=== PATIENT | male | born 1985 | race Native Hawaiian/Other Pacific Islander ===

== ENCOUNTER 2016-08-23 05:02 | Emergency (ER) | payer SELFPAY ==
[~2016-08-23] VITALS: Ht 170.2 cm; Wt 77.0 kg
[2016-08-23 05:17] VITALS: BP 123/65; PULSE 95; RESP 18; TEMP 98.4; O2SAT 97
[2016-08-23] MEDS ORDERED: BUPR4MIS SL (05:55)
[2016-08-23 05:59] VITALS: BP 130/68; PULSE 72; RESP 20; O2SAT 99
[2016-08-23] MEDS ORDERED: SODIUM CHLOR 0.9% 1000 ML INJ 1,000 ML IV SCH (06:17)
--- NOTE | 2016-08-23 06:23 | PD ---
HPI Chief Complaint: Abdominal Pain Time Seen by Provider: 06:07 Travel History International Travel<30 days: No Contact w/Intl Traveler<30days: No Traveled to known affect area: No History of Present Illness HPI The patient is a 30-year-old male that complains of midline epigastric pain along with vomiting for several days. 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 He has been getting nauseated. The patient states he has not been able to sleep. He does not have a history of ulcer. He did vomit some blood/coffee-ground appearing material tonight. He denies any fever. He does feel dehydrated. He does take as much as 400 mg of ibuprofen every 6 hours but denies drinking any alcohol and denies taking any aspirin. PFS Past Medical History Medical other: Yes (hx mrsa, iv drug use ) Tetanus Vaccination: Unknown Influenza Vaccination: No Past Surgical History Neurologic Surgery: Yes (laminectomy ) Social History Alcohol Use: No Tobacco Use: Yes (pack a day ) Substance Use: Yes (heroin, coccaine) Allergies-Medications (Allergen,Severity, Reaction): Coded Allergies: No Known Allergies (Unverified , 08/23/16) Reported Meds & Prescriptions Reported Meds & Active Scripts Active Reported Suboxone Sublingual Film (Buprenorphine-Naloxone Sublingual Film) 4-1 Mg Film 1 Film SL BID Unique ID number required: Review of Systems Except as stated in HPI: all other systems reviewed are Neg Physical Exam Narrative GENERAL: The patient appears moderately dehydrated, alert, oriented 3 in moderate apparent distress with his epigastric discomfort. His vital signs are normal. SKIN: Focused skin assessment warm/dry. HEAD: Atraumatic. Normocephalic. EYES: Pupils equal and round. No scleral icterus. No injection or drainage. ENT: No nasal bleeding or discharge. Mucous membranes pink and moist. NECK: Trachea midline. No JVD. CARDIOVASCULAR: Regular rate and rhythm. No murmur appreciated. RESPIRATORY: No accessory muscle use. Clear to auscultation. Breath sounds equal bilaterally. GASTROINTESTINAL: Abdomen soft, with tenderness to direct palpation in the midline epigastrium, nondistended. Hepatic and splenic margins not palpable. No guarding or rebound is present. MUSCULOSKELETAL: No obvious deformities. No clubbing. No cyanosis. No edema. NEUROLOGICAL: Awake and alert. No obvious cranial nerve deficits. Motor grossly within normal limits. Normal speech. PSYCHIATRIC: Appropriate mood and affect; insight and judgment normal. Data Data Last Documented VS Vital Signs Date Time Temp Pulse Resp B/P Pulse Ox O2 Delivery O2 Flow Rate FiO2 08/23/16 05:59 72 20 130/68 99 Room Air 08/23/16 05:17 98.4 Orders Complete Blood Count With Diff (08/23/16 06:17) Comprehensive Metabolic Panel (08/23/16 06:17) Lipase (08/23/16 06:17) Urinalysis - C+S If Indicated (08/23/16 06:17) Iv Access Insert/Monitor (08/23/16 06:17) Ecg Monitoring (08/23/16 06:17) Oximetry (08/23/16 06:17) Ondansetron Inj (Zofran Inj) (08/23/16 06:30) Pantoprazole Inj (Protonix Inj) (08/23/16 06:30) Sodium Chlor 0.9% 1000 Ml Inj (Ns 1000 M (08/23/16 06:17) Sodium Chloride 0.9% Flush (Ns Flush) (08/23/16 06:30) Famotidine Inj (Pepcid Inj) (08/23/16 06:30) Al-Mag Hy-Si 40-40-4 Mg/Ml Liq (Mag-Al P (08/23/16 06:30) Lidocaine 2% Viscous (Xylocaine 2% Visco (08/23/16 06:30) Labs Laboratory Tests Test 08/23/16 06:25 White Blood Count 16.0 TH/MM3 Red Blood Count 5.92 MIL/MM3 Hemoglobin 15.9 GM/DL Hematocrit 48.8 % Mean Corpuscular Volume 82.5 FL Mean Corpuscular Hemoglobin 26.9 PG Mean Corpuscular Hemoglobin 32.6 % Concent Red Cell Distribution Width 13.4 % Platelet Count 315 TH/MM3 Mean Platelet Volume 8.7 FL Neutrophils (%) (Auto) 76.5 % Lymphocytes (%) (Auto) 15.0 % Monocytes (%) (Auto) 7.8 % Eosinophils (%) (Auto) 0.3 % Basophils (%) (Auto) 0.4 % Neutrophils # (Auto) 12.3 TH/MM3 Lymphocytes # (Auto) 2.4 TH/MM3 Monocytes # (Auto) 1.2 TH/MM3 Eosinophils # (Auto) 0.0 TH/MM3 Basophils # (Auto) 0.1 TH/MM3 CBC Comment DIFF FINAL Differential Comment Sodium Level 140 MEQ/L Potassium Level 3.4 MEQ/L Chloride Level 98 MEQ/L Carbon Dioxide Level 31.3 MEQ/L Anion Gap 11 MEQ/L Blood Urea Nitrogen 15 MG/DL Creatinine 1.08 MG/DL Estimat Glomerular Filtration 80 ML/MIN Rate Random Glucose 105 MG/DL Calcium Level 10.7 MG/DL Total Bilirubin 0.5 MG/DL Aspartate Amino Transf 34 U/L (AST/SGOT) Alanine Aminotransferase 80 U/L (ALT/SGPT) Alkaline Phosphatase 90 U/L Total Protein 9.4 GM/DL Albumin 5.0 GM/DL Lipase 300 U/L [facility] Medical Decision Making Medical Screen Exam Complete: Yes Emergency Medical Condition: Yes Medical Record Reviewed: Yes Differential Diagnosis Suboxone withdrawal, GERD, ulcer pain, pancreatitis, electrolyte disorder, dehydration, anemia Narrative Course It is now 0700 and the patient is transferred to Dr. Ramirez. Jamie Thomas MD Aug 23, 2016 06:23
[2016-08-23] MEDS ORDERED: SODIUM CHLORIDE 0.9% FLUSH 10 ML FLUSH IV FLUSH PRN (06:30)
[2016-08-23] MEDS ORDERED: ALUMINUM/MAGNESIUM/SIMETH 30 ML CUP PO ONE (06:30)
[2016-08-23] MEDS ORDERED: LIDOCAINE VISCOUS 2% SOLN 15 ML UDC PO ONE (06:30)
[2016-08-23] MEDS ORDERED: PANTOPRAZOLE SODIUM 40 MG VIAL IVP ONE (06:30)
[2016-08-23] MEDS ORDERED: ONDANSETRON HCL 4 MG/2 ML VIAL IVP ONE (06:30)
[2016-08-23] MEDS ORDERED: FAMOTIDINE 20 MG/2 ML VIAL IV PUSH ONE (06:30)
[2016-08-23 06:41] LABS: AUTOMATED NEUTROPHIL # 12.3 TH/MM3 (1.8-7.7); BASOPHIL # 0.1 TH/MM3 (0-0.2); BASOPHIL % 0.4 % (0.0-2.0); EOSINOPHIL % 0.3 % (0.0-4.0); HEMATOCRIT 48.8 % (39.0-51.0); HEMO FLAGS DIFF FINAL; LYMPHOCYTE # 2.4 TH/MM3 (1.0-4.8); MEAN CELL VOLUME 82.5 FL (80.0-100.0); MEAN CORPUSCULAR HEMOGLOBIN 26.9 PG (27.0-34.0); MEAN CORPUSCULAR HGB CONC 32.6 % (32.0-36.0); MONO % 7.8 % (0.0-8.0); NEUT % 76.5 % (16.0-70.0); PLATELET COUNT 315 TH/MM3 (150-450); RED BLOOD COUNT 5.92 MIL/MM3 (4.50-5.90); RED CELL DISTRIBUTION WIDTH 13.4 % (11.6-17.2)
[2016-08-23 07:01] LABS: ALT (GPT) 80 U/L (12-78); ANION GAP 11 MEQ/L (5-15); AST (GOT) 34 U/L (15-37); BICARBONATE 31.3 MEQ/L (21.0-32.0); BLOOD UREA NITROGEN 15 MG/DL (7-18); CHLORIDE 98 MEQ/L (98-107); GLOMERULAR FILTRATION RATE 80 ML/MIN (>89); POTASSIUM 3.4 MEQ/L (3.5-5.1); SODIUM (NA) 140 MEQ/L (136-145)
[2016-08-23 07:04] LABS: ALKALINE PHOSPHATASE 90 U/L (45-117); TOTAL BILIRUBIN ADULT 0.5 MG/DL (0.2-1.0)
[2016-08-23 07:39] LABS: BLOOD, URINE NEG (NEG); COMMENT (UR) CULT NOT INDICATED; CULTURE IF INDICATED CULT NOT INDICATED; GLUCOSE,URINE NEG (NEG); HYALINE CAST, URINE 57 /lpf (RARE); KETONE, URINE 10 mg/dL (NEG); MUCUS URINE MANY /lpf (OCC); NITRITE,URINE NEG (NEG); PH, URINE 8.5 (5.0-8.5); SQUAMOUS EPITHELIAL CELL URINE <1 /hpf (0-5); URINE COLOR YELLOW (YELLW/STRAW)
[2016-08-23 07:56] VITALS: BP 117/67; PULSE 73; RESP 20; TEMP 98.7; O2SAT 99
[2016-08-23 07:59] VITALS: PULSE 68; RESP 20; O2SAT 99
--- NOTE | 2016-08-23 08:08 | PD ---
Physical Exam Narrative Received sign out from previous team to reevaluate pt. 30yo M with PMH of suboxone use presents to the ED with diffuse abdominal pain, NBNB vomiting and nonbloody diarrhea since yesterday. Labs reviewed, leukocytosis at 16,000. Lipase 300. K: 3.4. Replaced orally. UA negative. Pt given GI cocktail by previous team. Pt reevaluated and still with abdominal pain, mainly epigastric. No RLQ tenderness. Pt has not had any vomiting here. States he feels better after NS IVF. Initially ordered morphine but not given since pt is going back to [facility] for opioid abuse. Given toradol instead. CTa/p unremarkable. Pt is well appearing and tolerating PO. States he wants to go back to [facility] and they will come pick him up and that they saved his room for 24 hours. Data Data Last Documented VS Vital Signs Date Time Temp Pulse Resp B/P Pulse Ox O2 Delivery O2 Flow Rate FiO2 08/23/16 07:59 68 20 99 Room Air 08/23/16 07:56 98.7 117/67 Orders Complete Blood Count With Diff (08/23/16 06:17) Comprehensive Metabolic Panel (08/23/16 06:17) Lipase (08/23/16 06:17) Urinalysis - C+S If Indicated (08/23/16 06:17) Iv Access Insert/Monitor (08/23/16 06:17) Ecg Monitoring (08/23/16 06:17) Oximetry (08/23/16 06:17) Ondansetron Inj (Zofran Inj) (08/23/16 06:30) Pantoprazole Inj (Protonix Inj) (08/23/16 06:30) Sodium Chlor 0.9% 1000 Ml Inj (Ns 1000 M (08/23/16 06:17) Sodium Chloride 0.9% Flush (Ns Flush) (08/23/16 06:30) Famotidine Inj (Pepcid Inj) (08/23/16 06:30) Al-Mag Hy-Si 40-40-4 Mg/Ml Liq (Mag-Al P (08/23/16 06:30) Lidocaine 2% Viscous (Xylocaine 2% Visco (08/23/16 06:30) Ct Abd/Pel W Iv Contrast(Rout) (08/23/16 ) Potassium Chloride (Kcl) (08/23/16 08:15) Sodium Chlor 0.9% 1000 Ml Inj (Ns 1000 M (08/23/16 08:15) Iohexol 350 Inj (Omnipaque 350 Inj) (08/23/16 09:41) Morphine Inj (Morphine Inj) (08/23/16 10:45) Ketorolac Inj (Toradol Inj) (08/23/16 11:45) Labs Laboratory Tests Test 08/23/16 08/23/16 06:25 06:50 White Blood Count 16.0 TH/MM3 Red Blood Count 5.92 MIL/MM3 Hemoglobin 15.9 GM/DL Hematocrit 48.8 % Mean Corpuscular Volume 82.5 FL Mean Corpuscular Hemoglobin 26.9 PG Mean Corpuscular Hemoglobin 32.6 % Concent Red Cell Distribution Width 13.4 % Platelet Count 315 TH/MM3 Mean Platelet Volume 8.7 FL Neutrophils (%) (Auto) 76.5 % Lymphocytes (%) (Auto) 15.0 % Monocytes (%) (Auto) 7.8 % Eosinophils (%) (Auto) 0.3 % Basophils (%) (Auto) 0.4 % Neutrophils # (Auto) 12.3 TH/MM3 Lymphocytes # (Auto) 2.4 TH/MM3 Monocytes # (Auto) 1.2 TH/MM3 Eosinophils # (Auto) 0.0 TH/MM3 Basophils # (Auto) 0.1 TH/MM3 CBC Comment DIFF FINAL Differential Comment Sodium Level 140 MEQ/L Potassium Level 3.4 MEQ/L Chloride Level 98 MEQ/L Carbon Dioxide Level 31.3 MEQ/L Anion Gap 11 MEQ/L Blood Urea Nitrogen 15 MG/DL Creatinine 1.08 MG/DL Estimat Glomerular Filtration 80 ML/MIN Rate Random Glucose 105 MG/DL Calcium Level 10.7 MG/DL Total Bilirubin 0.5 MG/DL Aspartate Amino Transf 34 U/L (AST/SGOT) Alanine Aminotransferase 80 U/L (ALT/SGPT) Alkaline Phosphatase 90 U/L Total Protein 9.4 GM/DL Albumin 5.0 GM/DL Lipase 300 U/L Urine Color YELLOW Urine Turbidity CLEAR Urine pH 8.5 Urine Specific [place] 1.028 Urine Protein 100 mg/dL Urine Glucose (UA) NEG mg/dL Urine Ketones 10 mg/dL Urine Occult Blood NEG Urine Nitrite NEG Urine Bilirubin NEG Urine Urobilinogen LESS THAN 2.0 MG/DL Urine Leukocyte Esterase NEG Urine RBC LESS THAN 1 /hpf Urine WBC 2 /hpf Urine Squamous Epithelial <1 /hpf Cells Urine Hyaline Casts 57 /lpf Urine Mucus MANY /lpf Microscopic Urinalysis Comment CULT NOT INDICATED MDM Supervised Visit with MILA: No Diagnosis Primary Impression: Abdominal pain Qualified Code: R10.84 - Generalized abdominal pain Patient Instructions: General Instructions Departure Forms: Tests/Procedures Additional Instruction: Please follow up with your PMD in 1-2 days. Return to the ED if symptoms worsen. Med/Other Pt SpecificInfo: Prescription(s) given Scripts Acetaminophen (Tylenol)325 Mg [id number] Mg PO Q6H PRN (PAIN SCALE 1 TO 4) #20 TAB Ref 0 Prov:Teresa Ramirez DO 08/23/16 Disposition: 01 DISCHARGE HOME Condition: Stable Teresa Ramirez DO Aug 23, 2016 08:08
[2016-08-23] MEDS ORDERED: SODIUM CHLOR 0.9% 1000 ML INJ 1,000 ML IV ONE (08:15)
[2016-08-23] MEDS ORDERED: POTASSIUM CHLORIDE 20 MEQ CONTROLLED RELEASE TAB PO ONE (08:15)
[2016-08-23] MEDS ORDERED: IOHEXOL 350 MG/ML 10 ML VIAL (for RAD DIAG) IV ONE (09:41)
--- NOTE | 2016-08-23 10:23 | RADRPT ---
EXAM DATE/TIME: 08/23/2016 09:35 [place] COMPARISON: No previous studies available for comparison. INDICATIONS : Diffuse abdomen pain with vomiting and diarrhea today. IV CONTRAST: 86 cc Omnipaque 350 (iohexol) IV ORAL CONTRAST: No oral contrast ingested. RADIATION DOSE: 6.57 CTDIvol (mGy) MEDICAL HISTORY : None SURGICAL HISTORY : laminectomy. ENCOUNTER: Initial ACUITY: 1 day PAIN SCALE: 7/10 LOCATION: Bilateral abdomen TECHNIQUE: Volumetric scanning of the abdomen and pelvis was performed. Using automated exposure control and ad justment of the mA and/or kV according to patient size, radiation dose was kept as low as reasonably achievable to obtain optimal diagnostic quality images. FINDINGS: The visualized lungs are clear. There is no pericardial effusion The liver is unremarkable. Gallbladder is small and contracted. Stomach is distended. Spleen, panc reas and adrenals unremarkable. There is symmetrical renal function. Pelvis is unremarkable. Review of bone windows reveals only degenerative changes. CONCLUSION: 1. I do not see an etiology for patient's diffuse abdominal pain. Darek Phillips MD FACR on August 23, 2016 at 9:59 Board Certified Radiologist. This report was verified electronically.
[2016-08-23] MEDS ORDERED: MORPHINE SULFATE 4 MG/ML INJ IV PUSH ONE (10:45)
[2016-08-23] MEDS ORDERED: TYLE325T PO (10:46)
[2016-08-23] MEDS ORDERED: KETOROLAC TROMETHAMINE 30 MG/ML (IVP) VIAL IV PUSH ONE (11:45)
== END 2016-08-23 12:15 | disposition home or self-care (01) ==
LOC: NEPC 05:02
DX: R10.84 Generalized abdominal pain (principal); E86.0 Dehydration; F17.210 Nicotine dependence, cigarettes, uncomplicated
CPT/HCPCS: 74177; 80053; 81001; 83690; 85025; 96374; 96375; 99285; C9113; J1885; J2405; J7030; Q9967